=== PATIENT | male | born 1985 | race Caucasian/White ===

== ENCOUNTER 2019-10-29 10:36 | Inpatient (IN) ==
[2019-10-29] MEDS ORDERED: Acetaminophen 325 MG TABLET PO PRN ×2 (12:30→12:45)
[2019-10-29] MEDS ORDERED: Isovue-370 500 ML BOTTLE IVP ONE (12:31)
[2019-10-29] MEDS ORDERED: *HR* OxyCODONE Immed Rel 5 MG TABLET PO PRN ×2 (12:31→12:45)
[2019-10-29] MEDS ORDERED: Ondansetron 4 MG/2 ML VIAL IVP PRN ×2 (12:35→12:45)
[2019-10-29 13:08] LABS: Basophils % 0.3 %; Eosinophils # 0.2 K/mcL (0.0-0.6); Eosinophils % 3.8 %; Hematocrit 43.5 % (37.5-50.1); Hemoglobin 15.1 g/dL (12.9-16.9); Immature Granulocytes % 0.2 % (0-4); Lymphocytes # 2.6 K/mcL (0.6-4.6); Lymphocytes % 45.6 %; Mean Corpuscular HGB Conc 34.7 g/dL (31.6-35.5); Mean Corpuscular Hemoglobin 30.8 pg (28.0-33.3); Mean Corpuscular Volume 88.6 fL (83.0-100.0); Monocytes # 0.4 K/mcL (0.0-1.3); Monocytes % 7.7 %; Neutrophils # 2.4 K/mcL (1.6-8.9); Platelet Count 265 K/mcL (140-400); Red Blood Count 4.91 M/mcL (4.19-5.50); Red Cell Distribution Width 12.2 % (11.5-14.5); Segmented Neutrophils % 42.4 %; White Blood Count 5.7 K/mcL (4.3-11.1)
[2019-10-29 13:24] LABS: Alanine Aminotransferase 16 Units/L (7-52); Albumin 4.5 g/dL (3.5-5.7); Alkaline Phosphatase 65 Units/L (34-104); Amylase 45 Units/L (29-103); Aspartate Amino Transferase 16 Units/L (13-39); BUN/Creatinine Ratio 13 (6-26); Bilirubin,Total 0.5 mg/dL (0.3-1.0); Blood Urea Nitrogen 11 mg/dL (6-20); Calcium 9.9 mg/dL (8.6-10.3); Carbon Dioxide 29 mEq/L (23-29); Chloride 104 mEq/L (98-107); Globulin 2.3 g/dL (2.4-3.5); Glucose 94 mg/dL (70-105); Lipase 9 Units/L (11-82); Osmolality,Calculated 287 (280-300); Potassium 3.6 mEq/L (3.5-5.1); Sodium 139 mEq/L (136-145); Total Protein 6.8 g/dL (6.4-8.9); eGFR For African Americans > 60 (> 60); eGFR For Non-African Americans > 60 (> 60)
[2019-10-29] MEDS: D5% in 0.45% NACL 1,000 ML IVC SCH ×2 (13:27→23:54)
[2019-10-30] MEDS: D5% in 0.45% NACL 1,000 ML IVC SCH (09:54)
[2019-10-30] MEDS ORDERED: *HR* Propofol 200 MG/20 ML VIAL IVP ONE (10:50)
[2019-10-30] MEDS ORDERED: *HR* Midazolam HCl 2 MG/2 ML VIAL ONE (10:51)
[2019-10-30] MEDS ORDERED: *HR* FentaNYL (PF) 100 MCG/2 ML VIAL ONE (10:51)
[2019-10-30] MEDS ORDERED: Dexamethasone 4 MG/ML VIAL ONE (10:54)
[2019-10-30] MEDS ORDERED: Lidocaine -MPF 2% 2 ML VIAL ONE (10:54)
[2019-10-30] MEDS ORDERED: *HR* Rocuronium Bromide 50 MG/5 ML VIAL ONE (10:58)
[2019-10-30] MEDS ORDERED: *HR* Succinylcholine 200 MG/10 ML VIAL IVP ONE (10:58)
[2019-10-30] MEDS ORDERED: Ondansetron 4 MG/2 ML VIAL ONE (10:58)
[2019-10-30] MEDS ORDERED: *HR* HYDROmorphone (PF) 1 MG/ML SYRINGE IVP PRN (11:28)
[2019-10-30] MEDS ORDERED: Ringers Solution, Lactated 1,000 ML ONE (11:57)
[2019-10-30] MEDS ORDERED: Clindamycin 900 MG/50 ML 900 MG/50 ML IV.SOLN IVPB ONE (12:08)
[2019-10-30] MEDS ORDERED: Bupivacaine/EPI 1:200k 0.25%PF 10 ML VIAL INFILT ONE (12:08)
[2019-10-30] MEDS ORDERED: Isovue-300 50ML VIAL ONE (12:09)
[2019-10-30] MEDS ORDERED: Acetaminophen IV 1,000 MG/100 ML INFUS..BTL ONE (12:32)
[2019-10-30] MEDS ORDERED: Acetaminophen IV 1,000 MG/100 ML INFUS..BTL IVPB ONE (12:34)
[2019-10-30] MEDS ORDERED: *HR* HYDROMORPHONE 2 MG/ML VIAL ONE (12:44)
[2019-10-30] MEDS ORDERED: *HR* PHENYLEPHRINE 1,000 MCG/10 ML SYRINGE IVP ONE (12:47)
[2019-10-30] MEDS ORDERED: Ringers Solution, Lactated 500 ML IVC ONE (13:43)
[2019-10-30] MEDS ORDERED: Acetaminophen 325 MG TABLET PO PRN (15:00)
[2019-10-30] MEDS ORDERED: *HR* OxyCODONE Immed Rel 5 MG TABLET PO PRN (15:00)
[2019-10-30] MEDS ORDERED: Ondansetron 4 MG/2 ML VIAL IVP PRN (15:00)
[2019-10-30] MEDS ORDERED: Ringers Solution, Lactated 1,000 ML IVC SCH (15:00)
[2019-10-30] MEDS ORDERED: *HR* Promethazine 25 MG/ML VIAL IVP PRN (15:00)
[2019-10-31 07:58] LABS: Basophils % 0.2 %; Eosinophils % 0.2 %; Hemoglobin 14.7 g/dL (12.9-16.9); Immature Granulocytes % 0.3 % (0-4); Lymphocytes # 2.4 K/mcL (0.6-4.6); Mean Corpuscular HGB Conc 34.2 g/dL (31.6-35.5); Mean Corpuscular Hemoglobin 30.5 pg (28.0-33.3); Mean Corpuscular Volume 89.2 fL (83.0-100.0); Mean Platelet Volume 10.4 fL (9.4-12.4); Monocytes # 1.3 K/mcL (0.0-1.3); Monocytes % 10.9 %; Neutrophils # 7.8 K/mcL (1.6-8.9); Platelet Count 284 K/mcL (140-400); Red Blood Count 4.82 M/mcL (4.19-5.50); Red Cell Distribution Width 12.4 % (11.5-14.5); Segmented Neutrophils % 67.4 %
[2019-10-31 08:14] LABS: White Blood Count 11.5 K/mcL (4.3-11.1)
[2019-10-31 08:19] LABS: Alanine Aminotransferase 25 Units/L (7-52); Albumin 4.3 g/dL (3.5-5.7); Alkaline Phosphatase 64 Units/L (34-104); Amylase 41 Units/L (29-103); Aspartate Amino Transferase 23 Units/L (13-39); BUN/Creatinine Ratio 12 (6-26); Bilirubin,Total 0.5 mg/dL (0.3-1.0); Blood Urea Nitrogen 9 mg/dL (6-20); Calcium 9.6 mg/dL (8.6-10.3); Carbon Dioxide 26 mEq/L (23-29); Chloride 104 mEq/L (98-107); Globulin 2.2 g/dL (2.4-3.5); Glucose 118 mg/dL (70-105); Lipase 8 Units/L (11-82); Osmolality,Calculated 292 (280-300); Potassium 3.7 mEq/L (3.5-5.1); Sodium 141 mEq/L (136-145); Total Protein 6.5 g/dL (6.4-8.9); Triglycerides 111 mg/dL (< 150); eGFR For African Americans > 60 (> 60); eGFR For Non-African Americans > 60 (> 60)
[2019-10-31 09:51] VITALS: BP 112/75
== END 2019-10-31 11:10 | disposition home or self-care (01) | DRG 419 ==
LOC: 3ANU → 1ANU
PROVIDERS: ADMIT Surgery; ATTEND Surgery